=== PATIENT | female | born 1990 | race Caucasian/White ===

== ENCOUNTER 2024-04-13 16:14 | Outpatient (CLI) | payer OTHER | END 2024-04-13 17:21 | disposition home or self-care (01) | LOC: NST 16:14 | PROVIDERS: ATTEND Obstetrics & Gynecology | DX: Z34.83 Encounter for supervision of other normal pregnancy, third trimester (principal) ==

== ENCOUNTER 2024-05-10 23:23 | Inpatient (IN) | payer OTHER ==
[~2024-05-10] VITALS: Ht 154.9 cm; Wt 105.7 kg
[2024-05-10 23:15] VITALS: BP 126/82
[2024-05-10] MEDS ORDERED: BETAMETHASONE ACETATE,SOD PHOS 30 MG/5 ML ML IM STA (23:26)
[2024-05-10] MEDS ORDERED: MAGNESIUM SULFATE IN WATER 100 ML IV ONE (23:30)
[2024-05-10] MEDS ORDERED: MAGNESIUM SULFATE IN WATER 500 ML IV SCH (23:30)
[2024-05-10] MEDS ORDERED: RINGERS SOLUTION,LACTATED 1,000 ML IV SCH (23:30)
[2024-05-10] MEDS ORDERED: ACETAMINOPHEN 325 MG TABLET PO PRN (23:30)
[2024-05-11] MEDS ORDERED: DIALYVITE 800-1 EACH PO (00:32)
[2024-05-11] MEDS ORDERED: PRENATAL TABLE1 EAC4 PO (00:32)
[2024-05-11] MEDS ORDERED: IRON236 MG PO (00:32)
[2024-05-11 00:51] LABS: HEMATOCRIT 35.5 % (36.0-45.00); MEAN CELL VOLUME 86.8 fL (80.00-100.00); MEAN CORPUSCULAR HGB CONC 32.5 g/dl (32.0-36.0); PLATELET COUNT 242 K/uL (150-450); RED BLOOD COUNT 4.09 M/uL (4.00-6.00); RED CELL DISTRIBUTION WIDTH 15.2 % (11.5-14.5)
[2024-05-11 00:56] LABS: HEMOGLOBIN 11.5 g/dL (12.0-15.00); MEAN CORPUSCULAR HEMOGLOBIN 28.1 pg (27.00-32.0)
[2024-05-11 01:16] LABS: ALBUMIN 2.4 gm/dL (3.4-5.0); BILIRUBIN TOTAL 0.24 mg/dL (0.3-1.2); GFR 130.02; GLOBULINA 4.2 G/DL (2.4-3.5); POTASSIUM 3.65 mEq/L (3.5-5.1); TOTAL PROTEIN 6.6 gm/dL (6.4-8.2)
[2024-05-11 01:17] LABS: CREATININE SERUM 0.54 mg/dL (0.55-1.02); INR 0.96; PARTIAL THROMBOPLASTIN TIME 33.4 SECONDS (22.0-34.0); PROTHROMBIN TIME 10.5 SECONDS (9.0-11.5)
[2024-05-11 03:26] VITALS: BP 111/73
[2024-05-11 07:27] VITALS: BP 111/73
[2024-05-11 11:43] VITALS: BP 110/72
[2024-05-11 15:36] VITALS: BP 109/75
[2024-05-11 19:43] VITALS: BP 117/74
[2024-05-11 23:36] VITALS: BP 117/78
[2024-05-12] MEDS ORDERED: BETAMETHASONE ACETATE,SOD PHOS 30 MG/5 ML ML IM NR
[2024-05-12 04:04] VITALS: BP 112/73
[2024-05-12 07:25] VITALS: BP 110/71; O2SAT 97
[2024-05-12 11:35] VITALS: BP 110/71
[2024-05-12 15:29] VITALS: BP 112/74
[2024-05-12 19:45] VITALS: BP 131/79
[2024-05-12 23:22] VITALS: BP 113/70
[2024-05-13 03:15] VITALS: BP 127/76; O2SAT 100
[2024-05-13 07:23] VITALS: BP 105/70
[2024-05-13] MEDS ORDERED: NIFEDIPINE 60 MG TAB.SA.OSM PO SCH (09:00)
[2024-05-13 10:28] VITALS: BP 112/70
[2024-05-13 16:10] VITALS: BP 121/80
[2024-05-14] VITALS: BP 112/70
[2024-05-14 08:45] VITALS: BP 120/76
== END 2024-05-14 15:46 | disposition home or self-care (01) | DRG 833 ==
LOC: LDR 23:23 → OB/GYN 05-13 08:36
PROVIDERS: ADMIT Obstetrics & Gynecology; ATTEND Obstetrics & Gynecology
PROC: 4A1HXCZ Monitoring of Products of Conception, Cardiac Rate, External Approach (ICD-10-PCS; principal; 2024-05-10)
PROC: BY4FZZZ Ultrasonography of Third Trimester, Single Fetus (ICD-10-PCS; 2024-05-11)
PROC: BU4CZZZ Ultrasonography of Uterus and Ovaries (ICD-10-PCS; 2024-05-11)
DX: O26.853 Spotting complicating pregnancy, third trimester (principal); O36.8130 Decreased fetal movements, third trimester, not applicable or unspecified; O60.03 Preterm labor without delivery, third trimester; O26.843 Uterine size-date discrepancy, third trimester; Z3A.32 32 weeks gestation of pregnancy

== ENCOUNTER 2024-05-24 10:37 | Outpatient (CLI) | payer OTHER ==
[~2024-05-24] VITALS: Ht 157.5 cm; Wt 107.0 kg
[2024-05-24 09:03] VITALS: BP 98/67
[~2024-05-24 10:37] MED LIST: DIALYVITE 800-1 EACH PO; IRON236 MG PO; PRENATAL TABLE1 EAC4 PO
[2024-05-24 11:30] VITALS: BP 115/78
[2024-05-24 15:10] VITALS: BP 108/74
[2024-05-24 16:03] VITALS: BP 108/74
== END 2024-05-24 16:03 | disposition home or self-care (01) ==
LOC: OBS/DEL 10:37
PROVIDERS: ATTEND Obstetrics & Gynecology
DX: O26.893 Other specified pregnancy related conditions, third trimester (principal); Z3A.34 34 weeks gestation of pregnancy